=== PATIENT | female | born 1950 | race Caucasian/White ===

== ENCOUNTER 2017-05-29 06:17 | Day surgery (SDC) | payer OTHER, BC ==
[2017-05-19 16:08] VITALS: BMI 26.5
[2017-05-29] MEDS ORDERED: MIDAZOLAM HCL 2 MG/2 ML SINGLE DOSE VIAL ONE ×2 (06:51→07:13)
[2017-05-29] MEDS ORDERED: oxyCODONE HCL 10 MG SUSTAINED ACTING TABLET PO ONE (06:51)
[2017-05-29] MEDS ORDERED: BUPIVACAINE HCL/PF 0.5% (5MG/ML) 10 ML VIAL ONE (07:05)
[2017-05-29] MEDS ORDERED: SUCCINYLCHOLINE CHLORIDE 200 MG/10 ML VIAL ONE (07:09)
[2017-05-29] MEDS ORDERED: LIDOCAINE HCL/PF 2% SDV 5ML VIAL ONE (07:09)
[2017-05-29] MEDS ORDERED: PROPOFOL 20 ML ONE (07:09)
[2017-05-29] MEDS ORDERED: ROCURONIUM BROMIDE 50 MG/5 ML VIAL ONE (07:09)
[2017-05-29] MEDS ORDERED: ePHEDrine SULFATE 50 MG/1 ML AMPULE ONE (07:09)
[2017-05-29] MEDS ORDERED: THROMBIN (BOVINE) 5,000 UNIT VIAL TP ONE ×2 (07:11→10:16)
[2017-05-29] MEDS ORDERED: LIDOCAINE 1%/EPI 1:100000 (20 ML MULTI DOSE VIAL) ONE (07:11)
[2017-05-29] MEDS ORDERED: methylPREDNISolone ACET (DEPO) 40 MG/1 ML VIAL ONE (07:11)
[2017-05-29] MEDS ORDERED: DEXAMETHASONE SOD PHOSPHATE/PF 10 MG/ML SDV ONE (07:13)
[2017-05-29] MEDS ORDERED: BUPIVACAINE HCL/PF (5 MG/ML) 30 ML VIAL IJ ONE (07:13)
--- NOTE | 2017-05-29 08:08 | HP ---
History & Physical Update - History History: No Change - Physical Physical: No Change - Assessment Assessment: No Change - Plan Plan: No Change (seen by cardiology on 05/24/2017 with a clearance of low risk, also seen by PMD with full H&P on 05/17/2017)
[2017-05-29] MEDS ORDERED: LIDOCAINE 1%/EPI 1:100000 (50 ML MULTI DOSE VIAL) INF ONE (08:28)
[2017-05-29] MEDS ORDERED: DEXAMETHASONE SOD PHOSPHATE 4 MG/1 ML VIAL ONE (08:44)
[2017-05-29] MEDS ORDERED: ONDANSETRON 4 MG/2 ML VIAL ONE (08:44)
[2017-05-29] MEDS ORDERED: GELATIN SPONGE,ABSORBABLE 1 GM PACKET TP ONE (10:17)
[2017-05-29] MEDS ORDERED: methylPREDNISolone ACET (DEPO) 40 MG/1 ML VIAL IM ONE (10:17)
[2017-05-29] MEDS ORDERED: SODIUM CHLORIDE 1,000 ML IV STA (11:10)
--- NOTE | 2017-05-29 11:16 | OP ---
Operative Note - Note: Operative Date: 05/29/17 Pre-Operative Diagnosis: lumbar stenosis Operation: s/p laminectomy L5-S1, primary repair of durotomy with 6.0 prolene, duragen patch and duraseal Surgeon: Kam Motley Inspector Aluminum Boat: Brisa Garcia Anesthesiologist/BODY STRAIGHTENER: Dalila Dowd Anesthesia: Spinal Estimated Blood Loss (mls): 50 Fluid Volume Replaced (mls): 800 Operative Report Dictated: Yes
--- NOTE | 2017-05-29 11:22 | SURG ---
Surgery Landscape Crew Leader Note Landscape Crew Leader: Brisa Garcia PA-C Date of Service: 05/29/17 Diagnosis: lumbar stenosis Procedure: s/p laminectomy L5-S1, primary repair of durotomy with 6.0 prolene, duragen patch and duraseal I was present for the entirety of the operative procedure. For further detail, please refer to operative report. Visit type - Case Type Case Type: Scheduled Admission - Emergency Emergency Visit: No - New patient This patient is new to me today: Yes Date on this admission: 05/29/17
[2017-05-29] MEDS ORDERED: ACETAMINOPHEN/CAFFEINE/BUTALBITAL 1 TAB PO ONE (11:30)
--- NOTE | 2017-05-29 11:58 | OP ---
DATE OF OPERATION: 05/29/2017 PREOPERATIVE DIAGNOSIS: Spinal stenosis L5-S1. POSTOPERATIVE DIAGNOSIS: Spinal stenosis L5-S1. PROCEDURE PERFORMED: 1. Laminectomy L5-S1. 2. Repair of dural tear. SURGEON: Kam Motley MD PLASTIC MAKER: DAVID Booth ESTIMATED BLOOD LOSS: 50 mL. IV FLUIDS: Per Anesthesia. ANESTHESIA: Spinal/TLIP. COMPLICATIONS: There were none. DISPOSITION: The patient was brought to the PACU in stable condition. INDICATIONS FOR SURGERY: The patient is a 67-year-old female who has been suffering from pain down her back down her right leg. X-rays and MRI were completed, which noted that she had spinal stenosis at L5-S1. She had gone through an exhaustive course of treatment for this, which included medications, physical therapy as well as injections. Unfortunately, her pain continued to persist despite all this. At this point, risks, benefits, and alternatives were discussed and the patient consented to surgery. DESCRIPTION OF PROCEDURE: The patient was brought to the operating room by the Anesthesia staff. After appropriate patient identification was performed, spinal anesthesia was given along with a TLIP block. Two needles were placed into the back to viry off the L5 and S1 segments. X-ray was taken to confirm this was correct. The needle was removed, and 10 mL of lidocaine with epinephrine was injected into the spine. At this time, her back was prepped and draped in a sterile manner. At this point, a time-out was completed. An incision was made from the top of L5 down to the bottom of S1. Dissection was carried down to the fascia. Fascia was split open at this time, and appropriate retractor was then placed in. A spinal needle was placed onto the L5 lamina. X-rays were taken to confirm this was correct. Needle was removed. Interspinous ligament L5-S1 was removed. A portion of the L5-S1 spinous process was removed. The microscope was brought in. During the dissection it should be noted that CSF fluid was noted, and dural tear was noted at this time. The dural tear was tamponaded with a edward. Attention was turned to the right side where a complete decompression was performed. The flavum and portions of facet were removed such that by the end of the procedure the S1 nerve root appeared to be well decompressed. Attention was turned to the dural tear. The dural tear was exposed. At this point, using a 6-0 Nurolon suture the dural tear was closed. The patient was able to do a Valsalva maneuver, and there was no leakage of fluid. All bleeding was well controlled at this time. A DuraGen patch and DuraSeal was placed. The fascia was closed with a No. 1 Vicryl suture. A running suture was placed on top of that. The subcutaneous tissue was closed with 2-0 Vicryl suture. The skin was closed with 3-0 Monocryl suture. Dermabond was applied. Steri-Strips were applied. A sterile dressing was applied. The patient was placed supine on the OR bed and brought to the PACU in stable condition. Anh BLAIR/[id number]
[2017-05-29] MEDS ORDERED: GABAPENTIN 300 MG CAPSULE (FP) PO ONE (12:00)
[2017-05-29] MEDS ORDERED: oxyCODONE HCL 5 MG TABLET PO PRN (12:43)
[2017-05-29] MEDS ORDERED: ONDANSETRON 4 MG/2 ML VIAL IVPUSH PRN (12:43)
[2017-05-29] MEDS ORDERED: LACTATED RINGERS SOLUTION 1,000 ML IV SCH (12:45)
[2017-05-29 13:18] VITALS: PULSE 83
[2017-05-29 14:11] VITALS: BP 105/55; TEMP 98
== END 2017-05-29 14:11 | disposition home or self-care (01) ==
LOC: FASU 06:17
PROVIDERS: ATTEND Orthopaedic Surgery Orthopaedic Surgery of the Spine
PROC: 01NB0ZZ Release Lumbar Nerve, Open Approach (ICD-10-PCS; principal; 2017-05-29 08:32)
DX: M48.07 Spinal stenosis, lumbosacral region (principal); G96.11 Dural tear
CPT/HCPCS: 72100-TC-FY; 94760

== ENCOUNTER 2018-05-21 07:51 | Day surgery (SDC) | payer OTHER, BC ==
[2018-05-15 08:40] VITALS: BMI 26.5
[~2018-05-21 07:51] MED LIST: oxyCODONE HCL 10 MG SUSTAINED ACTING TABLET PO ONE
[2018-05-21] MEDS ORDERED: oxyCODONE HCL 10 MG SUSTAINED ACTING TABLET ONE (10:42)
[2018-05-21] MEDS ORDERED: BUPIVACAINE HCL/PF (5 MG/ML) 30 ML VIAL IJ ONE (11:23)
[2018-05-21] MEDS ORDERED: SODIUM CHLORIDE 0.9% P/F 10 ML VIAL IJ ONE (11:23)
[2018-05-21] MEDS ORDERED: methylPREDNISolone ACET (DEPO) 40 MG/1 ML VIAL ONE (11:24)
[2018-05-21] MEDS ORDERED: GUM MASTIC/STORAX/MSAL/ALCOHOL 1 DRP DROPSBTL MC ONE (11:25)
[2018-05-21] MEDS ORDERED: LIDOCAINE 1%/EPI 1:100000 (20 ML MULTI DOSE VIAL) ONE (11:25)
[2018-05-21] MEDS ORDERED: THROMBIN (RECOMBINANT) 5,000 UNIT VIAL TP ONE (11:25)
[2018-05-21] MEDS ORDERED: MIDAZOLAM HCL 2 MG/2 ML SINGLE DOSE VIAL ONE ×4 (11:26→12:54)
--- NOTE | 2018-05-21 11:42 | HP ---
History & Physical Update - History History: No Change - Physical Physical: No Change - Assessment Assessment: No Change - Plan Plan: No Change
[2018-05-21] MEDS ORDERED: ONDANSETRON 4 MG/2 ML VIAL ONE (11:56)
[2018-05-21] MEDS ORDERED: DEXAMETHASONE SOD PHOSPHATE 4 MG/1 ML VIAL ONE (11:56)
[2018-05-21] MEDS ORDERED: ceFAZolin SODIUM 1 GM VIAL ONE (11:56)
[2018-05-21] MEDS ORDERED: LIDOCAINE 1%/EPI 1:100000 (50 ML MULTI DOSE VIAL) INF ONE (12:00)
[2018-05-21] MEDS ORDERED: THROMBIN (BOVINE) 5,000 UNIT VIAL TP ONE (12:22)
[2018-05-21] MEDS ORDERED: GELATIN SPONGE,ABSORBABLE 1 GM PACKET TP ONE (12:22)
[2018-05-21] MEDS ORDERED: methylPREDNISolone ACET (DEPO) 40 MG/1 ML VIAL IM ONE (12:40)
[2018-05-21] MEDS ORDERED: oxyCODONE HCL 5 MG TABLET PO PRN ×2 (13:27)
[2018-05-21] MEDS ORDERED: PROMETHAZINE HCL 25 MG/1 ML VIAL IVPUSH PRN (13:27)
[2018-05-21] MEDS ORDERED: ONDANSETRON 4 MG/2 ML VIAL IVPUSH PRN (13:27)
--- NOTE | 2018-05-21 13:27 | SURG ---
Surgery Charge Account Clerk Note Charge Account Clerk: Brisa Garcia PA-C Date of Service: 05/21/18 Diagnosis: spinal stenosis, herniated disc L5-S1 Procedure: laminetomy of L4 to L5 and L5 to S1, microdisectomy of L5-S1 I was present for the entirety of the operative procedure. For further detail, please refer to operative report. Visit type - Case Type Case Type: Scheduled - Emergency Emergency Visit: No - New patient This patient is new to me today: Yes Date on this admission: 05/21/18
--- NOTE | 2018-05-21 13:27 | OP ---
Operative Note - Note: Operative Date: 05/21/18 Pre-Operative Diagnosis: spinal stenosis, herniated disc L5-S1 Operation: laminetomy of L4 to L5 and L5 to S1, microdisectomy of L5-S1 Surgeon: Kam Motley Horseradish Grinder: Brisa Garcia Anesthesiologist/DESKTOP SPECIALIST: Joey Lopez Anesthesia: Spinal Estimated Blood Loss (mls): 20 Fluid Volume Replaced (mls): 600 Operative Report Dictated: Yes
[2018-05-21 14:53] VITALS: TEMP 97.4
[2018-05-21 16:49] VITALS: BP 130/63; PULSE 81
--- NOTE | 2018-05-21 23:08 | OP ---
DATE OF OPERATION: 05/21/2018 PREOPERATIVE DIAGNOSIS: Spinal stenosis L4-5, L5-S1. POSTOPERATIVE DIAGNOSIS: Spinal stenosis L4-5, L5-S1. PROCEDURE PERFORMED: 1. Revision laminectomy L5-S1. 2. Laminectomy L4-5. SURGEON: Kam Motley M.D. SENIOR QUALITY ASSURANCE SPECIALIST: Xander Booth ESTIMATED BLOOD LOSS: 50 mL INTRAVENOUS FLUIDS: Per anesthesia. ANESTHESIA: Spinal/TLIP block. COMPLICATIONS: There were none. DISPOSITION: Patient brought to the PACU in stable condition. INDICATION FOR SURGERY: The patient is a 68-year-old female who had previously undergone laminectomy at L5-S1. She had done well with her surgery until recently when she began to have pain from her back down her right leg. X-rays and MRI were completed, which noted she had re-herniation at L5-S1. She had gone through an exhaustive course of treatment for this which unfortunately, her pain continued to persist. The risks, benefits, and alternatives were discussed and the patient consented to surgery. OPERATIVE NOTE: Patient is brought to the operating room by the anesthesia staff. After appropriate patient identification is performed, spinal anesthesia was given along with a TLIP block. The patient was able to position herself prone onto the OR table with all areas of bony prominences well padded at this time. Two needles were placed into his back to viry off the L4 and S1 segment, and x-ray is taken to confirm this is correct. [place] were removed, and 10 mL of lidocaine with epinephrine was injected into her back at this time. Her back was prepped and draped in a sterile manner. At this point timeout was completed. An incision was made from the top of L4 down to the bottom of S1. Dissection was carried down to the fascia. Fascia was then split open at this time, and appropriate retractors were then placed in. Then a spinal needle was placed onto the L5 lamina to viry off the L5-S1 level. An x-ray was taken to confirm this was correct. The needle was removed, and the microscope was brought in. The interspinous ligament at L4-5 and L5-S1 was removed. The spinous process of L5 was removed, and lamina at L5 was removed. A complete decompression was performed such that by the end of the procedure the L5 and S1 nerve roots appear to be well decompressed. At this point the thecal sac was mobilized medially and disk herniation was noted. The knife was used to incise the disk, and the disk was removed at this time. By the end of the procedure with the L5 and S1 nerve roots appear to be well decompressed . All bleeding was well controlled at this time. Steroids were placed over the nerve root, Floseal was placed over that. The fascia was closed with a number 1 Vicryl suture. The subcutaneous tissue was closed with 2-0 Vicryl suture. Skin was closed with 3-0 Monocryl suture. Dermabond was applied. Steri-Strips were applied. Sterile dressing was applied. Patient was placed supine on OR bed, and brought to the PACU in stable condition. Anh BLAIR/[id number]
--- NOTE | 2018-05-23 16:41 | PATH ---
Surgical Pathology Report Patient Name: FUNMI MALDONADO [facility]. Rec. #: [id number] /Age/Gender: 1950 (Age: 68) / F Account: [id number] Location: [facility] Taken: 05/21/2018 Received: 05/22/2018 Reported: 05/23/2018 Physicians: Kam Motley M.D. Specimen(s) Received L5-S1 DISC Clinical History Spinal stenosis Final Diagnosis L5-S1 DISC, LAMINECTOMY: FIBROUS AND CARTILAGINOUS TISSUE WITH DEGENERATIVE CHANGE. Electronically Signed Jose Manuel Watkins M.D. Gross Description Received in formalin labeled "L5-S1 disc," is a 1.5 x 1.0 x 0.3 cm aggregate of irizarry fragments of fibrocartilaginous tissue. The specimen is submitted in toto in one cassette. 05/22/201805/22/2018
== END 2018-05-21 16:40 | disposition home or self-care (01) ==
LOC: FASU 07:51
PROVIDERS: ATTEND Orthopaedic Surgery Orthopaedic Surgery of the Spine
PROC: 01NB0ZZ Release Lumbar Nerve, Open Approach (ICD-10-PCS; principal; 2018-05-21 12:15)
DX: M48.061 Spinal stenosis, lumbar region without neurogenic claudication (principal); M48.07 Spinal stenosis, lumbosacral region
CPT/HCPCS: 72100-TC-FY; 76000-TC-FY; 88304-TC; 94760

== ENCOUNTER 2020-12-18 07:27 | Day surgery (SDC) | payer OTHER ==
[2020-12-11 17:30] VITALS: BMI 25.7
[2020-12-18] MEDS ORDERED: ONDANSETRON 4 MG/2 ML VIAL IVPUSH PRN (09:37)
[2020-12-18] MEDS ORDERED: oxyCODONE HCL 5 MG TABLET PO PRN (09:37)
[2020-12-18] MEDS ORDERED: LACTATED RINGERS SOLUTION 1,000 ML IV SCH (09:45)
[2020-12-18] MEDS ORDERED: BUPIVACAINE HCL/PF 2.5 MG/ML - 30 ML VIAL IJ ONE (09:46)
[2020-12-18] MEDS ORDERED: MIDAZOLAM HCL 2 MG/2 ML SINGLE DOSE VIAL ONE (09:59)
[2020-12-18] MEDS ORDERED: PROPOFOL 20 ML ONE ×5 (09:59→10:04)
[2020-12-18] MEDS ORDERED: BUPIVACAINE HCL/PF 0.25% (2.5MG/ML) 10 ML VIAL IJ ONE (10:40)
[2020-12-18 12:05] VITALS: TEMP 97.8
[2020-12-18 12:47] VITALS: BP 112/68; PULSE 67
== END 2020-12-18 12:45 | disposition home or self-care (01) ==
LOC: FASU 07:27
PROVIDERS: ATTEND Orthopaedic Surgery
PROC: 0SBD4ZZ Excision of Left Knee Joint, Percutaneous Endoscopic Approach (ICD-10-PCS; 2020-12-18)
PROC: 0SBD4ZZ Excision of Left Knee Joint, Percutaneous Endoscopic Approach (ICD-10-PCS; principal; 2020-12-18 10:25)
DX: S83.242A Other tear of medial meniscus, current injury, left knee, initial encounter (principal); S83.282A Other tear of lateral meniscus, current injury, left knee, initial encounter; S83.8X2A Sprain of other specified parts of left knee, initial encounter; M65.862 Other synovitis and tenosynovitis, left lower leg; X58.XXXA Exposure to other specified factors, initial encounter; Y93.9 Activity, unspecified; Y92.9 Unspecified place or not applicable
CPT/HCPCS: 88304-TC; 94760